=== PATIENT | male | born 1970 | race Caucasian/White ===

== ENCOUNTER 2022-05-23 19:21 | Observation (INO) | payer OTHER ==
--- OUTSIDE RECORDS SUMMARY | 2022-05-23 19:25 | XMS REPORT | Continuity of Care Document ---
:1970 Author Organization [facility] t Address [address] [place] [address] Care Team Providers Name Role Phone Pcp, Patient Does Not Have A Primary Care Physician [phone] L_Pena Attending Clinician Unavailable Asked, No Pcp Attending Clinician Unavailable Mony Kerr Attending Clinician [phone] TATUM Attending Clinician Unavailable Eloisa Mcnair Attending Clinician [phone] Nay Cornelius RN Attending Clinician Unavailable Only, Ang Db Test Attending Clinician Unavailable Diego Hua MD Attending Clinician DIEGO HUA Attending Clinician Unavailable Matthias Penn Attending Clinician L_Pena Admitting Clinician Unavailable WATERS_S Admitting Clinician Unavailable Payers Payer Name Policy Type Policy Number Effective Date Expiration Date S ourberkley [employer] - OPEN ACCESS [id number] - NATIONAL (POS) Problems Condition Condition Condition Status Onset Resolution Last Treating Co mments Source Name Details Category Date Date Treatment Clinician Date Skin Skin Problem Active 2021-06 [place] lesion Lesion 2-08 [facility]i 00:00: ty 00 [facility] Clin[facility] Essential Essential Problem Active Swe francis hypertensi Hypertensi 9-13 Co mmuni on on 00:00: ty 00 [facility]ospita l Clinics DX:[id number] DX:[id number] Diagnosis Active 2015-062016-05-12 Memoria D=CONCUSSI 9D=CONCUSS 07-12 19:03:00 l ON WITH ION WITH 00:00: Rashel LOSS OF LOSS OF 00 CONS CONS Active 05/12/2016 [facility] Allergies, Adverse Reactions, Alerts Allergy Allergy Status Severity Reaction(s) Onset Inactive Treating Comm ents Source Name Type Date Date Clinician Erythrom Allergy Active Moderate Vomiting Swe francis ycin to Communi Base substanc ty e Hospita l Clinics NO KNOWN Drug Active [facility] Social History Social Habit Start Date Stop Date Quantity Comments Source Exposure to Yes [facility] SARS-CoV-2 (event) [facility] Sex Assigned At [birth year] [facility] 00:00:00 00:00:00 Smoking Status Start Date Stop Date Source Current Every [facility] Tobacco smoking consumption [facility] unknown Medications Ordered Filled Start Stop Current Ordering Indication Dosage Frequency Signature Comments Components Source Medication Medication Date Date Medication? Clinician (SIG) Name Name clonidine clonidine 2021-06 No clonidine [place] HCl 0.1 mg HCl 0.1 mg 2-08 HCl 0.1 mg Communi tabletTake tabletTake 11:01: tabletTake ty 1 tablet by 1 tablet by 00 1 tablet Hospita oral route. oral route. by oral l route. Clinics clonidine clonidine 2021-06 No clonidine [place] HCl 0.1 mg HCl 0.1 mg 2-08 HCl 0.1 mg Communi tabletTake tabletTake 09:12: tabletTake ty 1 tablet by 1 tablet by 00 1 tablet Hospita oral route. oral route. by oral l route. Clinics clonidine clonidine 2020-06 No clonidine [place] HCl 0.1 mg HCl 0.1 mg 0-29 HCl 0.1 mg Communi tabletTake tabletTake 09:40: tabletTake ty 2 tablets 2 tablets 00 2 tablets Hospita by oral by oral by oral l route. route. route. Clinics metoprolol metoprolol No metoprolol [place] succinate succinate succinate Communi ER 50 mg ER 50 mg ER 50 mg ty tablet,exte tablet,exte tablet,ext Hospita nded nded ended l release 24 release 24 release 24 Clinics hr TAKE 1 hr TAKE 1 hr TAKE 1 TABLET BY TABLET BY TABLET BY MOUTH EVERY MOUTH EVERY MOUTH DAY DAY EVERY DAY Zyrtec 10 Zyrtec 10 No 1 Q1D Zyrtec 10 [place] mg tablet mg tablet mg tablet Communi Take 1 Take 1 Take 1 ty tablet tablet tablet Hospita every day every day every day l by oral by oral by oral Clinic s route. route. route. aspirin 81 aspirin 81 No 1 Q1D aspirin 81 [place] mg mg mg Communi tablet,ara tablet,ara tablet,del ty yed release yed release ayed H ospita Take 1 Take 1 release l tablet tablet Take 1 Clinics every day every day tablet by oral by oral every day route for route for by oral 90 days. 90 days. route for 90 days. atenolol 50 atenolol 50 No atenolol [place] mg-chlortha mg-chlortha 50 C ommuni lidone 25 lidone 25 mg-chlorth ty mg tablet mg tablet alidone 25 Hospita TAKE 1 TAKE 1 mg tablet l TABLET BY TABLET BY TAKE 1 Cli nics MOUTH EVERY MOUTH EVERY TABLET BY DAY DAY MOUTH EVERY DAY lisinopril lisinopril No lisinopril [place] 20 mg 20 mg 20 mg Communi tablet TAKE tablet TAKE tablet ty 1 TABLET BY 1 TABLET BY TAKE 1 Hospita MOUTH EVERY MOUTH EVERY TABLET BY l DAY DAY MOUTH Clinics EVERY DAY lisinopril lisinopril No 1 Q1D lisinopril [place] 40 mg 40 mg 40 mg Communi tablet Take tablet Take tablet ty 1 tablet 1 tablet Take 1 Hospi ta every day every day tablet l by oral by oral every day Clin ics route. route. by oral route. metoprolol metoprolol No metoprolol [place] succinate succinate succinate Communi ER 50 mg ER 50 mg ER 50 mg ty tablet,exte tablet,exte tablet,ext Hospita nded nded ended l release 24 release 24 release 24 Clinics hr TAKE 1 hr TAKE 1 hr TAKE 1 TABLET BY TABLET BY TABLET BY MOUTH EVERY MOUTH EVERY MOUTH DAY DAY EVERY DAY Zyrtec 10 Zyrtec 10 No 1 Q1D Zyrtec 10 [place] mg tablet mg tablet mg tablet Communi Take 1 Take 1 Take 1 ty tablet tablet tablet Hospita every day every day every day l by oral by oral by oral Clinic s route. route. route. aspirin 81 aspirin 81 No aspirin 81 [place] mg mg mg Communi tablet,ara tablet,ara tablet,del ty yed release yed release ayed H ospita TAKE 1 TAKE 1 release l TABLET BY TABLET BY TAKE 1 Cli nics MOUTH EVERY MOUTH EVERY TABLET BY DAY DAY MOUTH EVERY DAY atenolol 50 atenolol 50 No atenolol [place] mg-chlortha mg-chlortha 50 C ommuni lidone 25 lidone 25 mg-chlorth ty mg tablet mg tablet alidone 25 Hospita TAKE 1 TAKE 1 mg tablet l TABLET BY TABLET BY TAKE 1 Cli nics MOUTH EVERY MOUTH EVERY TABLET BY DAY DAY MOUTH EVERY DAY clonidine clonidine No 1 clonidine [place] HCl 0.1 mg HCl 0.1 mg HCl 0.1 mg Communi tablet Take tablet Take tablet ty 1 tablet by 1 tablet by Take 1 Hospita oral route. oral route. tablet by l oral Clinics route. lisinopril lisinopril No 1 Q1D lisinopril [place] 40 mg 40 mg 40 mg Communi tablet Take tablet Take tablet ty 1 tablet 1 tablet Take 1 Hospi ta every day every day tablet l by oral by oral every day Clin ics route. route. by oral route. metoprolol metoprolol No metoprolol [place] succinate succinate succinate Communi ER 50 mg ER 50 mg ER 50 mg ty tablet,exte tablet,exte tablet,ext Hospita nded nded ended l release 24 release 24 release 24 Clinics hr TAKE 1 hr TAKE 1 hr TAKE 1 TABLET BY TABLET BY TABLET BY MOUTH EVERY MOUTH EVERY MOUTH DAY DAY EVERY DAY Zyrtec 10 Zyrtec 10 No 1 Q1D Zyrtec 10 [place] mg tablet mg tablet mg tablet Communi Take 1 Take 1 Take 1 ty tablet tablet tablet Hospita every day every day every day l by oral by oral by oral Clinic s route. route. route. fenofibrate fenofibrate No 1 Q1D fenofibrat [place] 54 mg 54 mg e 54 mg Communi tablet Take tablet Take tablet ty 1 tablet 1 tablet Take 1 Hospi ta every day every day tablet l by oral by oral every day Clin ics route. route. by oral route. metoprolol metoprolol No 1 Q1D metoprolol [place] succinate succinate succinate Communi ER 50 mg ER 50 mg ER 50 mg ty tablet,exte tablet,exte tablet,ext Hospita nded nded ended l release 24 release 24 release 24 Clinics hr Take 1 hr Take 1 hr Take 1 tablet tablet tablet every day every day every day by oral by oral by oral route. route. route. atenolol 50 atenolol 50 No 1 Q1D atenolol [place] mg-chlortha mg-chlortha 50 C ommuni lidone 25 lidone 25 mg-chlorth ty mg tablet mg tablet alidone 25 Hospita Take 1 Take 1 mg tablet l tablet tablet Take 1 Clinics every day every day tablet by oral by oral every day route for route for by oral 90 days. 90 days. route for 90 days. clonidine clonidine No 2 clonidine [place] HCl 0.1 mg HCl 0.1 mg HCl 0.1 mg Communi tablet Take tablet Take tablet ty 2 tablets 2 tablets Take 2 Hos tyron by oral by oral tablets by l route. route. oral Clinics route. fenofibrate fenofibrate No fenofibrat [place] 54 mg 54 mg e 54 mg Communi tablet TAKE tablet TAKE tablet ty 1 TABLET BY 1 TABLET BY TAKE 1 Hospita MOUTH EVERY MOUTH EVERY TABLET BY l DAY DAY MOUTH Clinics EVERY DAY lisinopril lisinopril No 1 Q1D lisinopril [place] 10 mg 10 mg 10 mg Communi tablet Take tablet Take tablet ty 1 tablet 1 tablet Take 1 Hospi ta every day every day tablet l by oral by oral every day Clin ics route for route for by oral 90 days. 90 days. route for 90 days. metoprolol metoprolol No metoprolol [place] succinate succinate succinate Communi ER 50 mg ER 50 mg ER 50 mg ty tablet,exte tablet,exte tablet,ext Hospita nded nded ended l release 24 release 24 release 24 Clinics hr TAKE 1 hr TAKE 1 hr TAKE 1 TABLET BY TABLET BY TABLET BY MOUTH EVERY MOUTH EVERY MOUTH DAY DAY EVERY DAY aspirin 81 aspirin 81 No 1 Q1D aspirin 81 [place] mg mg mg Communi tablet,ara tablet,ara tablet,del ty yed release yed release ayed H ospita Take 1 Take 1 release l tablet tablet Take 1 Clinics every day every day tablet by oral by oral every day route for route for by oral 90 days. 90 days. route for 90 days. atenolol 50 atenolol 50 No atenolol [place] mg-chlortha mg-chlortha 50 C ommuni lidone 25 lidone 25 mg-chlorth ty mg tablet mg tablet alidone 25 Hospita TAKE 1 TAKE 1 mg tablet l TABLET BY TABLET BY TAKE 1 Cli nics MOUTH EVERY MOUTH EVERY TABLET BY DAY DAY MOUTH EVERY DAY cefdinir cefdinir No 1capsul Q12H cefdinir [place] 300 mg 300 mg e(s) 300 mg Communi capsule capsule capsule ty Take 1 Take 1 Take 1 Hospita capsule capsule capsule l every 12 every 12 every 12 Cli nics hours by hours by hours by oral route oral route oral route for 10 for 10 for 10 days. days. days. clonidine clonidine No 2 clonidine [place] HCl 0.1 mg HCl 0.1 mg HCl 0.1 mg Communi tablet Take tablet Take tablet ty 2 tablets 2 tablets Take 2 Hos tyron by oral by oral tablets by l route. route. oral Clinics route. fenofibrate fenofibrate No fenofibrat [place] 54 mg 54 mg e 54 mg Communi tablet TAKE tablet TAKE tablet ty 1 TABLET BY 1 TABLET BY TAKE 1 Hospita MOUTH EVERY MOUTH EVERY TABLET BY l DAY DAY MOUTH Clinics EVERY DAY lisinopril lisinopril No lisinopril [place] 10 mg 10 mg 10 mg Communi tablet TAKE tablet TAKE tablet ty 1 TABLET BY 1 TABLET BY TAKE 1 Hospita MOUTH EVERY MOUTH EVERY TABLET BY l DAY DAY MOUTH Clinics EVERY DAY lisinopril lisinopril No 1 Q1D lisinopril [place] 20 mg 20 mg 20 mg Communi tablet Take tablet Take tablet ty 1 tablet 1 tablet Take 1 Hospi ta every day every day tablet l by oral by oral every day Clin ics route for route for by oral 30 days. 30 days. route for 30 days. metoprolol metoprolol No metoprolol [place] succinate succinate succinate Communi ER 50 mg ER 50 mg ER 50 mg ty tablet,exte tablet,exte tablet,ext Hospita nded nded ended l release 24 release 24 release 24 Clinics hr TAKE 1 hr TAKE 1 hr TAKE 1 TABLET BY TABLET BY TABLET BY MOUTH EVERY MOUTH EVERY MOUTH DAY DAY EVERY DAY aspirin 81 aspirin 81 No 1 Q1D aspirin 81 [place] mg mg mg Communi tablet,ara tablet,aar tablet,del ty yed release yed release ayed H ospita Take 1 Take 1 release l tablet tablet Take 1 Clinics every day every day tablet by oral by oral every day route for route for by oral 90 days. 90 days. route for 90 days. atenolol 50 atenolol 50 No atenolol [place] mg-chlortha mg-chlortha 50 C ommun lidone 25 lidone 25 mg-chlorth ty mg tablet mg tablet alidone 25 Hospita TAKE 1 TAKE 1 mg tablet l TABLET BY TABLET BY TAKE 1 Cli nics MOUTH EVERY MOUTH EVERY TABLET BY DAY DAY MOUTH EVERY DAY lisinopril lisinopril No lisinopril [place] 20 mg 20 mg 20 mg Communi tablet TAKE tablet TAKE tablet ty 1 TABLET BY 1 TABLET BY TAKE 1 Hospita MOUTH EVERY MOUTH EVERY TABLET BY l DAY DAY MOUTH Clinics EVERY DAY lisinopril lisinopril No 1 Q1D lisinopril [place] 40 mg 40 mg 40 mg Communi tablet Take tablet Take tablet ty 1 tablet 1 tablet Take 1 Hospi ta every day every day tablet l by oral by oral every day Clin ics route. route. by oral route. Vital Signs Vital Name Observation Time Observation Value Comments Source BP Diastolic 2022-05-20 00:00:00 146 mm[Hg] [facility] s Height 2022-05-20 00:00:00 77 [in_i] [facility] s BMI (Body Mass 2022-05-20 00:00:00 34.5 kg/m2 [facility]) [facility] s BP Systolic 2022-05-20 00:00:00 210 mm[Hg] [facility] s Body Weight 2022-05-20 00:00:00 4649.6 [oz_av] [facility] s BP Diastolic 2022-02-23 00:00:00 112 mm[Hg] [facility] s Height 2022-02-23 00:00:00 77 [in_i] [facility] s BMI (Body Mass 2022-02-23 00:00:00 33.1 kg/m2 [facility]) [facility] s BP Systolic 2022-02-23 00:00:00 178 mm[Hg] [facility] s Body Weight 2022-02-23 00:00:00 4464 [oz_av] [facility] s BP Diastolic 2021-04-24 00:00:00 120 mm[Hg] [facility] s Height 2021-04-24 00:00:00 77 [in_i] [facility] s BMI (Body Mass 2021-04-24 00:00:00 35.2 kg/m2 [facility] s BP Systolic 2021-04-24 00:00:00 178 mm[Hg] [facility] s Body Weight 2021-04-24 00:00:00 4745.6 [oz_av] [facility] s BP Diastolic 2021-04-10 00:00:00 117 mm[Hg] [facility] s Height 2021-04-10 00:00:00 77 [in_i] [facility] s BMI (Body Mass 2021-04-10 00:00:00 36 kg/m2 [facility]) [facility] s BP Systolic 2021-04-10 00:00:00 176 mm[Hg] [facility] s Body Weight 2021-04-10 00:00:00 4864 [oz_av] [facility] s BP Diastolic 2021-02-05 00:00:00 124 mm[Hg] [facility] s Height 2021-02-05 00:00:00 77 [in_i] [facility] s BMI (Body Mass 2021-02-05 00:00:00 33.8 kg/m2 [facility]) Hospital Clinic s BP Systolic 2021-02-05 00:00:00 192 mm[Hg] [facility] s Body Weight 2021-02-05 00:00:00 4563.2 [oz_av] [facility] s Procedures Procedure Date / Time Performed Performing Clinician [facility] e Knee Counts Include 234 [facility] At [facility] Arthroscopy/surgery Hospital Cli nics Plan of Care Planned Activity Planned Date Details Comments Source Future Scheduled Test 2022-05-21 HEPATITIS B VACCINES [facility] 08:06:14 (1 of 3 - 3-dose series) [code = HEPATITIS B VACCINES (1 of 3 - 3-dose series)] Future Scheduled Test 2022-05-21 COVID-19 VACCINE [facility] 08:06:14 (#1) [code = COVID-19 VACCINE (#1)] Future Scheduled Test 2022-05-21 COLONOSCOPY Method [facility] 08:06:14 SCREENING [code = COLONOSCOPY SCREENING] Future Scheduled Test 2022-05-21 SHINGLES VACCINES (1 [facility] 08:06:14 of 2) [code = SHINGLES VACCINES (1 of 2)] Future Scheduled Test 2022-05-21 INFLUENZA VACCINE [facility] 08:06:14 [code = INFLUENZA VACCINE] Diagnostic Test 2022-05-20 CBC w/ auto diff [place] [facility] Pending 00:00:00 [code = CBC w/ auto Hospital Clinics diff] Diagnostic Test 2022-05-20 CMP, serum or plasma [facility] Pending 00:00:00 [code = CMP, serum Hospital Clinics or plasma] Diagnostic Test 2022-05-20 lipid panel, serum Counts Include 234 [facility] Pending 00:00:00 [code = lipid panel, [facility] serum] Diagnostic Test 2022-05-20 HbA1c (hemoglobin Counts Include 234 [facility] Pending 00:00:00 A1c), blood [code = [facility] HbA1c (hemoglobin A1c), blood] Diagnostic Test 2022-05-20 PSA, total, serum or [facility] Pending 00:00:00 plasma [code = PSA, [facility] total, serum or plasma] Diagnostic Test 2022-05-20 vitamin D, [place] Commu nit Pending 00:00:00 25-hydroxy, total, [facility] serum [code = vitamin D, 25-hydroxy, total, serum] Diagnostic Test 2022-05-20 TSH + free T4, serum [facility] Pending 00:00:00 [code = TSH + free Hospital Clinics T4, serum] Diagnostic Test 2022-05-20 noninvasive [place] [facility] n[facility] Pending 00:00:00 colorectal cancer [facility] linics DNA + occult blood screening, QL, stool [code = noninvasive colorectal cancer DNA + occult blood screening, QL, stool] Future Appointment 2022-05-28 Mony Kerr [address] [place] [address] 07:00:00 [facility], [address] , [place] [address] Instructions [facility] y Hospital Clinic s Encounters Start End Encounter Admission Attending Care Care Encounter Source Date/Time Date/Time Type Type Clinicians Facility Department ID 2022-05-21 2022-05-21 Outpatient L_Cirilo [facility] [id number] [place] 00:00:00 00:00:00 1209 [facility] i [facility] Clin[facility] 2022-05-20 2022-05-20 Outpatient L_Cirilo [facility] [id number] [place] 00:00:00 00:00:00 1208 Commun i ty Hospita l Clinics 2022-05-20 2022-05-20 Telephone Asked, No [id number] Methodi 00:00:00 00:00:[address] 3.430.2.7 Hospit a .[id number] l .8 2022-05-20 2022-05-20 [facility] [place] [id number] [place] 00:00:00 00:00:00 Nataliya Kerr APRN, MSN, [facility]: [address], CLIN[address], [place] [address] , Ph. 2022-02-23 2022-02-23 Outpatient L_Cirilo [facility] [id number] [place] 00:00:00 00:00:00 1207 Commun i ty Hospita l Clinics 2022-02-23 2022-02-23 Outpatient L_Cirilo [facility] [id number] [place] 00:00:00 00:00:00 0913 Commun i ty Hospita l Clinics 2022-02-23 2022-02-23 Outpatient CiriloZanea [facility] [id number] 00:00:00 00:00:00 [id number] 2022-02-23 2022-02-23 Outpatient Mony Kerr [facility] [id number] 00:00:00 00:00:00 [id number] 2022-02-23 2022-02-23 Mony [facility] [place] [facility] [place] [id number] [place] 00:00:00 00:00:00 Cirilo [facility] alecia IVEY, MSN, [facility] - ty [facility]: [address] [address] , Ph. 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 2021-03-14 2021-03-14 Outpatient WATERS_S [facility] [id number] [place] 07:22:00 07:22:00 1002 Commun i ty Hospita l Clinics 2021-02-16 2021-02-16 Telephone Adryan DOUGHERTY [id number] Univers 00:00:00 00:00:00 , Nay PARSONS [id number] ity of [facility] [id number] Irvin as [id number] [address] 2021-02-16 2021-02-16 Telephone Adryan DOUGHERTY [id number] Univers 00:00:00 00:00:00 , Nay PARSONS [id number] ity of [facility] [id number] Irvin as [id number] [address] 2021-02-15 2021-02-15 Laboratory Only, Ang Db Test [facility] 1.2.8 [id number] [id number] Univers 15:45:23 16:01:32 Only [facility] [id number] ity [facility] [id number] Irvin as Sami?Blea [id number] [address] Medical Office Building 2021-02-15 2021-02-15 Outpatient R [facility] [id number] Univers 15:25:00 15:25:00 DIEGO [facility] 2021-02-07 2021-02-07 Outpatient WATERS_S [facility] [id number] [place] 02:28:00 02:28:00 0828 Commun i ty Hospita l Clinics 2021-02-05 2021-02-05 Outpatient WATERS_S [facility] [id number] [place] 03:16:00 03:16:00 0826 Commun i ty Hospita l Clinics 2021-02-05 2021-02-05 [id number] 00:00:00 00:00:00 Eloisa [id number] 2021-02-05 2021-02-05 Eloisa [facility] [place] 00:00:00 00:00:00 Xu [facility] [employer] 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 2016-05-13 2016-05-13 Outpatient [facility] [id number] Memoria 00:56:00 05:59:00 r Rashel 00 l [facility] 2016-05-13 2016-05-13 Outpatient [place] [id number] [facility] 05:59:00 r Rashel l [facility] 2016-05-12 2016-05-12 Outpatient Matthias Penn [facility] [id number] 18:56:00 23:59:00 Andrey 00 Results This patient has no known results.
--- NOTE | 2022-05-23 20:56 | RAD REPORT ---
EXAM DESCRIPTION: CT - Head Brain Wo Cont - 05/23/2022 8:46 pm CLINICAL HISTORY: headache, elevated blood pressure COMPARISON: None TECHNIQUE: All CT scans are performed using dose optimization technique as appropriate and may inclu de automated exposure control or mA/KV adjustment according to patient size. FINDINGS: No intracranial hemorrhage, hydrocephalus or extra-axial fluid collection.No areas of brai n edema or evidence of midline shift. The paranasal sinuses and mastoids are clear. The calvarium is intact. IMPRESSION: No acute intracranial abnormality.
[2022-05-23] MEDS ORDERED: NITROGLYCERIN 0.4 MG/TAB SL ONE (21:05)
--- NOTE | 2022-05-23 21:33 | RAD REPORT ---
EXAM DESCRIPTION: RAD - Chest Single View - 05/23/2022 9:06 pm CLINICAL HISTORY: CHEST PAIN COMPARISON: None FINDINGS: Lines: None. Lungs: No evidence of edema or pneumonia. Pleural: No significant pleural effusions or pneumothorax. Cardiac: The heart size is within normal limits. Mediastinum: Within normal limits. Bones: No acute fractures. Other: None IMPRESSION: No acute cardiopulmonary disease.
[2022-05-23 21:45] LABS: Absolute Lymphocytes (CBC) 1.9 K/uL (0.7-4.9); Hematocrit 50.4 % (39.6-49.0); Lymphocytes % 31.8 % (15.3-44.8); MCV 87.2 fL (80-100); MPV 7.8 fL (7.6-11.3); RBC Red Blood Cell Count 5.79 M/uL (4.33-5.43)
[2022-05-23 21:46] LABS: Protime INR 0.92
[2022-05-23 21:57] LABS: Magnesium 2.1 mg/dL (1.6-2.4); Potassium 3.6 mmol/L (3.5-5.1); Troponin High Sensitivity 28.6 pg/mL (<58.9)
[2022-05-23] MEDS ORDERED: ASPIRIN 81 MG CHEWABLE TABLET ONE (23:07)
--- NOTE | 2022-05-23 23:09 | ER ---
Nurse's Notes [facility] Name: Manjinder Jernigan Jr Age: 52 yrs Sex: Male : 1970 Arrival Date: 05/23/2022 Time: 19:30 Bed 20 Private MD: Diagnosis: Chest pain, unspecified;Hypertensive heart disease without heart failure Presentation: 05/23 19:50 Chief complaint: Patient states: High blood pressure has been elevate despite taking kb3 his medications as prescribed. PCP increased lisinopril from 20mg to 40mg and added PRN clonidine if SBP> 180 on . BP has remained elevated throughout the weekend. Coronavirus screen: Vaccine status: Patient reports receiving the 2nd dose of the covid vaccine. Client denies travel out of the [place] in the last 14 days. Ebola Screen: Patient negative for fever greater than or equal to 101.5 degrees Fahrenheit, and additional compatible Ebola Virus Disease symptoms Patient denies exposure to infectious person. Patient denies travel to an Ebola-affected area in the 21 days before illness onset. No symptoms or risks identified at this time. Initial Sepsis Screen: Does the patient meet any 2 criteria? No. Patient's initial sepsis screen is negative. Does the patient have a suspected source of infection? No. Patient's initial sepsis screen is negative. Risk Assessment: Do you want to hurt yourself or someone else? Patient reports no desire to harm self or others. Onset of symptoms is unknown. 19:50 Method Of Arrival: Ambulatory kb3 19:50 Acuity: SARA 3 kb3 Triage Assessment: 19:54 General: Appears in no apparent distress. Behavior is calm, cooperative. Pain: Denies kb3 pain. Historical: - Allergies: 19:54 Erythromycin; kb3 - Home Meds: 19:54 aspirin 81 mg Oral chew 1 tab once daily [Active]; atenolol-chlorthalidone 50-25 mg kb3 oral tab 1 tab once daily [Active]; lisinopril 40 mg Oral tab 1 tab once daily [Active]; clonidine HCl 0.1 mg Oral Tb12 1 tab as needed [Active]; metoprolol tartrate 50 mg Oral tab 1 tab once daily [Active]; - PMHx: 19:54 Hypertensive disorder; kb3 - PSHx: 19:54 None; kb3 - Immunization history:: Adult Immunizations up to date, Client reports receiving the 2nd dose of the Covid vaccine, Last tetanus immunization: < 10 years ago. - Social history:: Smoking status: Patient reports the use of cigarette tobacco products, smokes one-half pack cigarettes per day. Screenin:15 [facility] ED Fall Risk Assessment (Adult) History of falling in the last 3 months, eh3 including since admission No falls in past 3 months (0 pts) Confusion or Disorientation No (0 pts) Intoxicated or Sedated No (0 pts) Impaired Gait No (0 pts) Mobility Assist Device Used No (0 pt) Altered Elimination No (0 pt) Score/Fall Risk Level 0 - 2 = Low Risk. Humpty Dumpty Scale Fall Assessment Tool (age< 18yrs) Age 13 years and above (1 pt) Gender Male (2 pts) Diagnosis Other diagnosis (1 pt) Cognitive Impairments Oriented to own ability (1 pt) Environmental Factors Patient placed in bed (2 pts) Response to Surgery/Sedation/Anesthesia More than 48 hours/None (1 pt) Medication Usage Other medications/ None (1 pt) Fall Risk Score/ Level Low Fall Risk: < 11 points Call lights \T\ moveable tables at bedside are N/A for Behavioral units or Behavioral Health Level of care. Abuse screen: Denies threats or abuse. Denies injuries from another. Nutritional screening: No deficits noted. Tuberculosis screening: No symptoms or risk factors identified. Fall Risk No fall in past 12 months (0 pts). No secondary diagnosis (0 pts). IV access (20 points). Ambulatory Aid- None/Bed Rest/Nurse Assist (0 pts). Gait- Normal/Bed Rest/Wheelchair (0 pts) Mental Status- Oriented to own ability (0 pts). Total Alejo Fall Scale indicates No Risk (0-24 pts). Assessment: 20:15 General: Appears in no apparent distress. uncomfortable, Behavior is calm, cooperative, eh3 appropriate for age. Pain: Complains of pain in chest Pain does not radiate. Neuro: Level of Consciousness is awake, alert, obeys commands, Oriented to person, place, time, situation. Cardiovascular: Capillary refill < 3 seconds Patient's skin is warm and dry. Respiratory: Airway is patent Respiratory effort is even, unlabored, Respiratory pattern is regular, symmetrical. GI: No signs and/or symptoms were reported involving the gastrointestinal system. Abdomen is round non-distended. : No signs and/or symptoms were reported regarding the genitourinary system. EENT: No signs and/or symptoms were reported regarding the EENT system. Derm: No signs and/or symptoms reported regarding the dermatologic system. Musculoskeletal: No signs and/or symptoms reported regarding the musculoskeletal system. Circulation, motion, and sensation intact. Range of motion: intact in all extremities. 21:15 Reassessment: Patient appears in no apparent distress at this time. Patient and/or eh3 family updated on plan of care and expected duration. Pain level reassessed. Patient is alert, oriented x 3, equal unlabored respirations, skin warm/dry/pink. 22:15 Reassessment: Patient appears in no apparent distress at this time. Patient and/or eh3 family updated on plan of care and expected duration. Pain level reassessed. Patient is alert, oriented x 3, equal unlabored respirations, skin warm/dry/pink. 23:15 Reassessment: Patient appears in no apparent distress at this time. Patient and/or eh3 family updated on plan of care and expected duration. Pain level reassessed. Patient is alert, oriented x 3, equal unlabored respirations, skin warm/dry/pink. 05/24 15:14 Reassessment: attempted to call report to second floor. nurse stated she will have to kc6 call me back because she was not aware that she is getting a new patient. Vital Signs: 05/23 19:50 BP 185 / 132; Pulse 68; Resp 20; Temp 98.8; Pulse Ox 100% ; Weight 131.54 kg; Height 6 kb3 ft. 5 in. (195.58 cm); Pain 0/10; 21:15 BP 154 / 103; Pulse 65; Resp 20; Pulse Ox 97% on R/A; eh3 22:15 BP 146 / 96; Pulse 65; Resp 18; Pulse Ox 94% on R/A; eh3 23:15 BP 146 / 99; Pulse 59; Resp 20; Pulse Ox 94% on R/A; eh3 19:50 Body Mass Index 34.39 (131.54 kg, 195.58 cm) kb3 ED Course: 19:30 Patient arrived in ED. bp1 19:32 Tino Hinson PA is PHCP. cp 19:32 González Nunn MD is Attending Physician. cp 19:53 Triage completed. kb3 19:54 Arm band placed on right wrist. kb3 20:15 Carly Hill, RN is Primary Nurse. eh3 20:15 Patient has correct armband on for positive identification. Bed in low position. Call eh3 light in reach. Side rails up X2. Adult w/ patient. Client placed on continuous cardiac and pulse oximetry monitoring. NIBP monitoring applied. Door closed. Noise minimized. Warm blanket given. 20:38 Jessenia Monroe, RN is Primary Nurse. hb 20:47 CT Head Brain wo Cont In Process Unspecified. EDMS 21:08 XRAY Chest (1 view) In Process Unspecified. EDMS 21:10 Inserted saline lock: 20 gauge in right antecubital area, using aseptic technique. eh3 Blood collected. 23:08 Kvng Baldwin MD is Hospitalizing Provider. cp 05/24 00:03 No provider procedures requiring assistance completed. Patient admitted, IV remains in eh3 place. Administered Medications: 05/23 21:05 Drug: Nitroglycerin 0.4 mg Route: Sublingual; eh3 21:31 Follow up: Response: Blood pressure is lowered eh3 22:40 Drug: Aspirin Chewable Tablet 324 mg Route: PO; eh3 23:00 Follow up: Response: No adverse reaction eh3 Medication: 05/24 00:03 VIS not applicable for this client. eh3 Outcome: 05/23 23:09 Decision to Hospitalize by Provider. cp 23:57 Admitted to ER Hold. Please see [facility] for further documentation. 05/24 00:03 Condition: stable eh3 15:49 Patient left the ED. kc6 Signatures: Dispatcher [employer] Eula Monroe RN Tino Stubbs PA PA cp Jessenia Monroe RN NO [facility] Carly Hill, NO SARABIA 3 Harriet Wharton RN RN kc6 Karen Rothman RN RN kb3 Corrections: (The following items were deleted from the chart) 05/23 23:55 21:01 Carly Hill RN is Primary Nurse. eh3 eh3
--- NOTE | 2022-05-23 23:09 | EDPHYS ---
Physician Documentation [facility] Name: Manjinder Jernigan Jr Age: 52 yrs Sex: Male : 1970 Arrival Date: 05/23/2022 Time: 19:30 Bed 20 Private MD: ED Physician González Nunn HPI: 05/23 20:30 This 52 yrs old Male presents to ER via Ambulatory with complaints of High Blood cp Pressure. 20:30 The patient has elevated blood pressure and discovered this at home, with a home device.cp 20:30 Onset: The symptoms/episode began/occurred last week. Associated signs and symptoms: cp Pertinent positives: chest pain, headache. 20:30 Patient reports elevated blood pressure since last week. Was seen by pcp who increased cp Lisinopril medication this past . Historical: - Allergies: 19:54 Erythromycin; kb3 - Home Meds: 19:54 aspirin 81 mg Oral chew 1 tab once daily [Active]; atenolol-chlorthalidone 50-25 mg kb3 oral tab 1 tab once daily [Active]; lisinopril 40 mg Oral tab 1 tab once daily [Active]; clonidine HCl 0.1 mg Oral Tb12 1 tab as needed [Active]; metoprolol tartrate 50 mg Oral tab 1 tab once daily [Active]; - PMHx: 19:54 Hypertensive disorder; kb3 - PSHx: 19:54 None; kb3 - Immunization history:: Adult Immunizations up to date, Client reports receiving the 2nd dose of the Covid vaccine, Last tetanus immunization: < 10 years ago. - Social history:: Smoking status: Patient reports the use of cigarette tobacco products, smokes one-half pack cigarettes per day. ROS: 20:35 Constitutional: Negative for body aches, chills, fever, poor PO intake. cp 20:35 Cardiovascular: Positive for chest pain, edema, Negative for palpitations. cp 20:35 Neuro: Positive for headache, Negative for altered mental status, dizziness, loss of consciousness, syncope, weakness. 20:35 Eyes: Negative for injury, pain, redness, and discharge. cp 20:35 ENT: Negative for drainage from ear(s), ear pain, sore throat, difficulty swallowing, difficulty handling secretions. 20:35 Respiratory: Negative for cough, shortness of breath, wheezing. 20:35 Abdomen/GI: Negative for abdominal pain, nausea, vomiting, and diarrhea. 20:35 All other systems are negative. cp Exam: 20:40 Constitutional: The patient appears in no acute distress, alert, awake, cp non-diaphoretic, non-toxic, well developed, well nourished. 20:40 Head/Face: Normocephalic, atraumatic. cp 20:40 Eyes: Periorbital structures: appear normal, Conjunctiva: normal, no exudate, no injection, Sclera: no appreciated abnormality, Lids and lashes: appear normal, bilaterally. 20:40 ENT: External ear(s): are unremarkable, Nose: is normal, Mouth: Lips: moist, Oral mucosa: moist, Posterior pharynx: Airway: no evidence of obstruction, patent. 20:40 Neck: ROM/movement: is normal, is supple, without pain, no range of motions limitations. 20:40 Chest/axilla: Inspection: normal. 20:40 Cardiovascular: Rate: normal, Rhythm: regular, Edema: ankle edema, that is very mild, JVD: is not appreciated. 20:40 Respiratory: the patient does not display signs of respiratory distress, Respirations: normal, no use of accessory muscles, no retractions, labored breathing, is not present, Breath sounds: are clear throughout, no decreased breath sounds, no stridor, no wheezing. 20:40 Abdomen/GI: Inspection: abdomen appears normal, Palpation: abdomen is soft and non-tender, in all quadrants. 20:40 Back: pain, that is mild. 20:40 Skin: no rash present. 20:40 Neuro: Orientation: to person, place \T\ time. Mentation: is normal, Cerebellar function: is grossly normal, Motor: moves all fours, strength is normal, Sensation: is normal. 21:17 ECG was reviewed by the Attending Physician. cp Vital Signs: 19:50 BP 185 / 132; Pulse 68; Resp 20; Temp 98.8; Pulse Ox 100% ; Weight 131.54 kg; Height 6 kb3 ft. 5 in. (195.58 cm); Pain 0/10; 21:15 BP 154 / 103; Pulse 65; Resp 20; Pulse Ox 97% on R/A; eh3 22:15 BP 146 / 96; Pulse 65; Resp 18; Pulse Ox 94% on R/A; eh3 23:15 BP 146 / 99; Pulse 59; Resp 20; Pulse Ox 94% on R/A; eh3 19:50 Body Mass Index 34.39 (131.54 kg, 195.58 cm) kb3 MDM: 20:04 Patient medically screened. cp 21:00 Differential diagnosis: hypertensive crisis, Malignant HTN, CVA, intracerebral cp hemorrhage, acute UT, angina. 22:15 Test interpretation: by ED physician or midlevel provider: ECG, plain radiologic cp studies. 22:15 Counseling: I had a detailed discussion with the patient and/or guardian regarding: the cp historical points, exam findings, and any diagnostic results supporting the discharge/admit diagnosis, lab results, radiology results. Response to treatment: the patient's symptoms have markedly improved after treatment. 22:20 Data reviewed: vital signs, nurses notes, lab test result(s), EKG, radiologic studies, cp CT scan, plain films. Physician consultation: Kvng Baldwin MD was contacted at 22:20, regarding admission, to the telemetry unit. patient's condition. 05/23 20:23 Order name: Basic Metabolic Panel 05/23 22:09 Interpretation: Normal except: BUN 25; GFR 76. 05/23 20:23 Order name: CBC with Diff; Complete Time: 22:09 05/23 22:09 Interpretation: Normal except: RBC 5.79; HCT 50.4; PLT 136. 05/23 20:23 Order name: Magnesium 05/23 20:23 Order name: NT PRO-BNP 05/23 20:23 Order name: PT-INR; Complete Time: 22:09 cp 05/23 20:23 Order name: Troponin HS 05/23 22:09 Interpretation: Troponin HS 28.6; Reviewed. 05/23 20:23 Order name: Urine Microscopic Only 05/23 20:23 Order name: UDS 05/23 23:16 Order name: Urine Dipstick-Ancillary EDDC 05/23 23:34 Order name: CKMB Creatine Kinase MB EDDC 05/23 23:34 Order name: CKMB Creatine Kinase MB EDDC 05/23 23:34 Order name: CKMB Creatine Kinase MB EDDC 05/23 23:34 Order name: Creatine Phosphokinase EDDC 05/23 20:23 Order name: XRAY Chest (1 view); Complete Time: 22:09 cp 05/23 20:23 Order name: CT Head Brain wo Cont; Complete Time: 22:09 cp 05/23 22:10 Interpretation: Report reviewed. 05/23 23:34 Order name: Creatine Phosphokinase [facility] 05/23 23:34 Order name: Creatine Phosphokinase [facility] 05/23 23:34 Order name: Lipid Profile [facility] 05/23 23:34 Order name: Lipid Profile [facility] 05/24 00:01 Order name: Creatine Phosphokinase [facility] 05/24 00:01 Order name: CKMB Creatine Kinase MB EDDC 05/24 08:09 Order name: SARS-COV-2 Antigen Rapid 05/24 08:50 Order name: Troponin High Sensitivity EDDC 05/24 08:58 Order name: Comprehensive Metabolic Panel EDDC 05/24 08:58 Order name: T4 Free EDDC 05/24 08:58 Order name: Magnesium EDDC 05/24 08:58 Order name: Thyroid Stimulating Hormone [facility] 05/24 10:29 Order name: SARS-COV-2 Antigen Rapid [facility] 05/23 20:23 Order name: EKG; Complete Time: 20:23 05/23 20:23 Order name: Cardiac monitoring; Complete Time: 21:22 05/23 20:23 Order name: EKG - Nurse/Tech; Complete Time: 21:16 05/23 20:23 Order name: IV Saline Lock; Complete Time: 21:22 05/23 20:23 Order name: Labs collected and sent; Complete Time: 21:22 05/23 20:23 Order name: O2 Per Protocol; Complete Time: 21:22 05/23 20:23 Order name: O2 Sat Monitoring; Complete Time: 21:22 05/23 20:23 Order name: Urine Dipstick-Ancillary (obtain specimen); Complete Time: 23:48 05/23 23:34 Order name: Heart Healthy EDDC EC:17 Rate is 73 beats/min. Rhythm is regular. CA interval is prolonged at 214 msec. QRS cp interval is prolonged at 122 msec. QT interval is normal. Interpreted by me. Reviewed by me. Administered Medications: 21:05 Drug: Nitroglycerin 0.4 mg Route: Sublingual; 3 21:31 Follow up: Response: Blood pressure is lowered 3 22:40 Drug: Aspirin Chewable Tablet 324 mg Route: PO; eh3 23:00 Follow up: Response: No adverse reaction eh3 Disposition: 05/24 22:31 Co-signature as Attending Physician, González Nunn MD. rn Disposition Summary: 05/23/22 23:09 Hospitalization Ordered Hospitalization Status: Observation cp Provider: Kvng Baldwin cp Condition: Stable cp Problem: new cp Symptoms: have improved cp Bed/Room Type: Standard cp Location: Telemetry/MedSurg (observation)(05/24/22 14:54) bd Room Assignment: 221(05/24/22 14:54) bd Diagnosis - Chest pain, unspecified cp - Hypertensive heart disease without heart failure cp Forms: - Medication Reconciliation Form cp - SBAR form cp Signatures: Dispatcher [employer] EDMS Ceci Brewster bd González Nunn MD MD rn Tino Hinson PA PA cp Joan Ventura RN RN Carly Hill RN RN 3 Karen Rothman RN RN kb3 Corrections: (The following items were deleted from the chart) 00:01 05/23 23:34 CKMB Creatine Kinase MB ordered. EDMS EDMS 05/24 00:01 12 23:34 Creatine Phosphokinase ordered. EDDC EDMS 05/24 00:02 05/23 23:09 Telemetry/MedSurg (observation) cp cg 05/24 00:02 12 23:09 cp cg 05/24 14:54 00:02 [facility] ER HOLD cg bd 14:54 00:02 ERHOLD- cg bd
[2022-05-23 23:14] LABS: Urine Blood Trace-intact (Negative); Urine Glucose Negative (Negative); Urine Protein 1+ (Negative); Urine pH 5.5 (5.0-7.0)
--- NOTE | 2022-05-23 23:23 | P.HP ---
Certification for Inpatient Patient admitted to: Observation With expected LOS: <2 Midnights Practitioner: I am a practitioner with admitting privileges, knowledge of patient current condition, hospital course, and medical plan of care. Services: Services provided to patient in accordance with Admission requirements found in Title 42 Section 412.3 of the Code of Federal Regulations Patient History Date of Service: 05/24/22 Reason for admission: Hypertensive urgency, chest discomfort. History of Present Illness: 52-year-old male patient with medical history significant for hypertension was evaluated in the emergency room for episode of elevated blood pressure. He reported recent change to his blood pressure medication with increase in lisinopril dose from 20 to 40 mg per primary care doctor however he continued to have elevated blood presure. he reported feeling discomfort with headache and dizziness. He reported chest discomfort and his systolic blood pressure over 200mmhg so he decided to come to the emergency room for evaluation. In the ED labs revealed abnormal vitals on arrival with systolic blood pressures of over 200 so he was given IV antihypertensive medication he was admitted for observation. At time of encounter he denies overt episode of chest pain but he felt some slight discomfort retrosternally. He denies fever, chills, rigor, nausea, vomiting, visual changes. Allergies erythromycin base Allergy (Verified 05/24/22 01:56) Hives/Rash Home Medications: Aspirin Chewable [Aspirin Chewable*] 81 mg PO DAILY 05/24/22 Atenolol/Chlorthalidone [Atenolol-Chlorthal 50-25 Tb] 1 each PO DAILY 05/24/22 Clonidine HCl [Clonidine HCl ER] 0.1 mg PO PRN PRN 05/24/22 Metoprolol Tartrate [Lopressor] 50 mg PO DAILY 05/24/22 lisinopriL [Lisinopril] 40 mg PO DAILY 05/24/22 - Past Medical/Surgical History Diabetic: No - Social History Smoking Status: Current every day smoker Alcohol use: No Review of Systems General: Unremarkable Eyes: Unremarkable ENT: Unremarkable Respiratory: Unremarkable Cardiovascular: Chest Pain Gastrointestinal: Unremarkable Genitourinary: Unremarkable Musculoskeletal: Unremarkable Integumentary: Unremarkable Neurological: Other (giddiness) Physical Examination - Physical Exam General: Alert, Oriented x3 HEENT: Atraumatic, Normocephalic Respiratory: Normal air movement Cardiovascular: Normal pulses, Regular rate/rhythm Gastrointestinal: Soft and benign Musculoskeletal: No swelling Neurological: Normal speech, Normal strength at 5/5 x4 extr - Studies Laboratory Data (last 24 hrs) 05/23/22 21:20: PT 10.1, INR 0.92 05/23/22 21:20: WBC 6.10, Hgb 17.2, Hct 50.4 H, Plt Count 136 L 05/23/22 21:20: Sodium 139, Potassium 3.6, BUN 25 H, Creatinine 1.14, Glucose 93, Magnesium 2.1 Assessment and Plan - Plan Hypertension: Poorly controlled. Antihypertensive medication to be continued as prescribed outpatient. Continue on as needed labetalol for blood pressure control for systolic BP above 170mmhg. Monitor on telemetry. Will obtain echocardiogram to assess for possible hypertensive heart disease. We will adjust BP meds to achieve BP goal of <130/80mmhg. Chest pain; Suspected due to ACS. Monitor on telemetry. We will obtain lipid panel. Will obtain echocardiogram to assess cardiac function. Prophylaxis: Lovenox for DVT prophylaxis CODE STATUS: Full code Disposition: we will work on blood pressure and control blood pressure. - Advance Directives Does patient have a Living Will: No Does patient have a Durable POA for Healthcare: No
[2022-05-23] MEDS ORDERED: ONDANSETRON 4 MG/2 ML VIAL IV PRN (23:24)
[2022-05-23] MEDS ORDERED: ACETAMINOPHEN 325 MG TABLET PO PRN (23:24)
[2022-05-23 23:25] LABS: Urine Mucus Slight /HPF (None Seen); Urine RBC <5 /HPF (None Seen)
[2022-05-23 23:30] LABS: Barbiturates NEGATIVE (NEGATIVE); Benzodiazepines NEGATIVE (NEGATIVE); Cocaine NEGATIVE (NEGATIVE); METHAMPHETAM NEGATIVE (NEGATIVE); Methadone NEGATIVE (NEGATIVE); Opiates NEGATIVE (NEGATIVE); Phencyclidine NEGATIVE (NEGATIVE); THC Cannibis NEGATIVE (NEGATIVE)
[2022-05-24 00:24] LABS: CKMB Creatine Kinase MB 1.6 ng/mL (1.0-3.6)
[2022-05-24 03:22] LABS: CKMB Creatine Kinase MB 1.1 ng/mL (1.0-3.6)
[2022-05-24] MEDS ORDERED: carvediloL 6.25 MG TAB ONE (04:41)
[2022-05-24] MEDS ORDERED: carvediloL 6.25 MG TAB PO SCH (06:00)
[2022-05-24] MEDS ORDERED: AMLODIPINE 5 MG TAB ONE (07:37)
[2022-05-24] MEDS ORDERED: ENOXAPARIN 40 MG/0.4 ML SQ ONE (07:37)
[2022-05-24] MEDS ORDERED: lisinopriL 20 MG TAB ONE (07:48)
[2022-05-24] MEDS: ENOXAPARIN 40 MG/0.4 ML SQ SCH (07:55)
[2022-05-24] MEDS: lisinopriL 20 MG TAB PO SCH (07:56)
[2022-05-24] MEDS: AMLODIPINE 5 MG TAB PO SCH (07:56)
[2022-05-24 08:58] LABS: Albumin 3.3 g/dL (3.4-5.0); Bilirubin Total 0.7 mg/dL (0.2-1.0); Magnesium 2.1 mg/dL (1.6-2.4); Potassium 3.6 mmol/L (3.5-5.1); Protein, Total 6.8 g/dL (6.4-8.2); Thyroid Stimulating Hormone 1.35 uIU/mL (0.358-3.740)
[2022-05-24 10:29] LABS: SARS-CoV-2 Antigen Rapid Res Negative (Negative)
[2022-05-24 14:45] LABS: CKMB Creatine Kinase MB 1.6 ng/mL (1.0-3.6)
--- NOTE | 2022-05-24 14:56 | EKG ---
Test Date: 2022-05-23 Test Time: 21:11:50 Egg Separator: RV MEASUREMENT RESULTS: Intervals: Rate: 67 WY: 208 QRSD: 136 QT: 432 QTc: 456 [place]: P: 68 W[place]: 208 QRS: -26 T: -13 INTERPRETIVE STATEMENTS: Normal sinus rhythm Left ventricular hypertrophy with QRS widening and repolarization abnormality Cannot rule out Septal infarct, age undetermined Abnormal ECG No previous ECG available for comparison Electronically Signed On 05-24-22 14:55:07 GENERAL FREIGHT AGENT by Donny Phillips
--- NOTE | 2022-05-24 14:56 | EKG ---
Test Date: 2022-05-23 Test Time: 21:12:26 Cash Room Clerk: RV MEASUREMENT RESULTS: Intervals: Rate: 73 ME: 214 QRSD: 122 QT: 448 QTc: 493 [place]: P: 69 ME: 214 QRS: -30 T: 18 INTERPRETIVE STATEMENTS: Sinus rhythm with 1st degree AV block Left axis deviation Left ventricular hypertrophy with QRS widening Cannot rule out Septal infarct, age undetermined Abnormal ECG Compared to ECG 05/23/2022 21:11:50 First degree AV block now present Left-axis deviation now present Early repolarization no longer present Myocardial infarct finding still present Electronically Signed On 05-24-22 14:55:04 ITINERANT TEACHER ASSISTANT by Donny Phillips
[2022-05-24] MEDS: CHLORTHALIDONE 25 MG TAB PO SCH (15:00)
[2022-05-24] MEDS: carvediloL 12.5 MG TAB PO SCH (16:35)
[2022-05-24] MEDS: LABETALOL 20 MG/4ML SYRINGE IV PRN ×2 (18:14→21:14)
--- NOTE | 2022-05-24 23:35 | P.PN ---
Date of Service: 05/24/22 Subjective: feels better, denies any further chest pain ROS: A complete review of systems was performed and is negative except as mentioned above Physical Exam: Gen: NAD, AOx3 HEENT: normal conjunctiva, sclera anicteric CV: regular rate & rhythm, no edema Pulm: non-labored respirations, clear bilaterally Abd: soft, non-tender, non-distended Skin: no rashes, no lesions Neuro: normal speech, normal affect, moves all extremities vitals reviewed Problem List HTN urgency Chest pain Nicotine dependence difficult to control BP, very resistant on multiple BP medications as outpatient, and still BP remains >180/100 at times continue amlodipine, carvedilol - started on admission (new) restarted home chlorthalidone pt reports nitro helped significantly in ED, discussed with Dr. Phillips, start imdur patient required IV anti-hypertensives, continue to monitor snores quite a bit, never had sleep study, although was recommended many years ago suspect EDILSON, could lead to resistant HTN check thyroid studies check renal artery doppler, r/o FRANCOIS Cardiology consulted Echo ordered VTE: lovenox Code: full Dispo: home, ~24-48hrs Time Spent Managing Pts Care (In Minutes): 35
[2022-05-24] MEDS: ISOSORBIDE MONO SR 60 MG TAB PO SCH (23:45)
[2022-05-25 04:46] LABS: Potassium 3.5 mmol/L (3.5-5.1)
[2022-05-25 05:51] VITALS: BMI 34.0
[2022-05-25] MEDS: carvediloL 12.5 MG TAB PO SCH (05:51)
--- NOTE | 2022-05-25 06:38 | ECHO ---
HEIGHT: 6 ft 5 in WEIGHT: 287 lb 0 oz DATE OF STUDY: 05/24/[address]: Vincent Nunn MD 2-DIMENSIONAL: YES M.MODE: YES DOPPLER: YES COLOR FLOW: YES TDS: PORTABLE: YES DEFINITY: BUBBLE STUDY: DIAGNOSIS: HYPERTENSION URGENCY CARDIAC HISTORY: CATHERIZATION: SURGERY: PROSTHETIC VALVE: PACEMAKER: MEASUREMENTS (cm) DIASTOLIC (NORMALS) SYSTOLIC (NORMALS) IVSd 1.4 (0.6-1.2) LA Diam 3.4 (1.9-4.0) LVEF 55-60% LVIDd 4.4 (3.5-5.7) LVIDs 3.2 (2.0-3.5) %FS 27% LVPWd 1.8 (0.6-1.2) Ao Diam 3.4 (2.0-3.7) 2 DIMENSIONAL ASSESSMENT: RIGHT ATRIUM: NORMAL LEFT ATRIUM: NORMAL RIGHT VENTRICLE: NORMAL LEFT VENTRICLE: MODERATE LEFT VENTRICULAR HYPERTROPHY TRICUSPID VALVE: NORMAL MITRAL VALVE: MILD MITRAL REGURGITATION PULMONIC VALVE: NORMAL AORTIC VALVE: NORMAL PERICARDIAL EFFUSION: TRACE AORTIC ROOT: NORMAL LEFT VENTRICULAR WALL MOTION: NORMAL DOPPLER/COLOR FLOW: SEE BELOW COMMENTS: 1. NORMAL LEFT VENTRICULAR EJECTION FRACTION 55-60% 2. NORMAL WALL MOTION 3. MODERATE CONCENTRIC LEFT VENTRICULAR HYPERTROPHY 4. MILD MITRAL REGURGITATION TECHNOLOGIST: SRI MEZA
--- NOTE | 2022-05-25 07:38 | RAD REPORT ---
EXAM DESCRIPTION: US - Abdomen Pelvis Scan US - 05/25/2022 5:35 am CLINICAL HISTORY: renal artery doppler, eval renal artery stenosis COMPARISON: No comparisons TECHNIQUE: Sonographic evaluation of the kidneys was performed with measurements obtained and gross anatomic assessment performed.Doppler evaluation of the renal arteries, interlobar arteries and aorta performed. Waveforms and velocities were recorded. The renal artery ratios and resistive index fidelia ues were calculated. FINDINGS: Right kidney is grossly 11 point 6 x 6.0 cm. Left kidney is grossly 12.6 x 5.4 cm. Both ki dneys show normal cortical thickness and echogenicity. No hydronephrosis or solid mass lesion. The 2 centimeter simple cyst is present central right kidney with a 1.3 cm simple cyst upper pole left kidn ey. Renal Doppler assessment shows no suspicious velocity value or suspicious waveform. Right-side resist sabiha index values of the renal artery range from 0.60-0.72 in value. Left renal artery resistive index value range form 0.62-0.66 in value. Proximal renal artery resistive index of 1.33 is believed to be an error. Arcuate artery resistive index values are 0.59 on the right and 0.58 on the left. Renal artery ratios are 0.67 on the right and 0.68 on the left. IMPRESSION: Normal renal artery ratios. No suspicion for renal artery stenosis. No hydronephrosis, mass or other renal anatomic significant finding.
[2022-05-25] MEDS: ISOSORBIDE MONO SR 60 MG TAB PO SCH (10:18)
[2022-05-25] MEDS: lisinopriL 20 MG TAB PO SCH (10:18)
[2022-05-25] MEDS: ENOXAPARIN 40 MG/0.4 ML SQ SCH (10:19)
[2022-05-25] MEDS: CHLORTHALIDONE 25 MG TAB PO SCH (10:19)
[2022-05-25] MEDS: AMLODIPINE 5 MG TAB PO SCH (10:19)
--- NOTE | 2022-05-25 11:01 | P.DS ---
Admission Date: 05/24/22 Discharge Date: 05/25/22 Disposition: ROUTINE DISCHARGE Discharge Condition: FAIR Reason for Admission: Hypertensive urgency, chest discomfort. - Problems (1) Accelerated hypertension Current Visit: Yes Status: Acute (2) Secondary polycythemia Current Visit: Yes Status: Acute Brief History of Present Illness: 52-year-old male patient with medical history significant for hypertension was evaluated in the emergency room for episode of elevated blood pressure. He reported recent change to his blood pressure medication with increase in lisinopril dose from 20 to 40 mg per primary care doctor however he continued to have elevated blood presure. he reported feeling discomfort with headache and dizziness. He reported chest discomfort and his systolic blood pressure over 200mmhg so he decided to come to the emergency room for evaluation. In the ED patient's systolic blood pressures was over 200 so he was given IV antihypertensive medication and he was admitted for observation. Hospital Course: Patient placed on observation on the medical floor, troponin trended negative. Seen by cardiology, he was started on amlodipine, Coreg and Imdur per cardiology recommendation, continued lisinopril and chlorthalidone. Atenolol was replaced with Coreg. Patient was asymptomatic during the hospital stay. Blood pressure improved with these measures. Echocardiogram showed moderate LV hypertrophy, no wall motion abnormalities seen. Noted patient has some degree of polycythemia. Given his refractory hypertension, I suspect he has sleep apnea and recommended follow-up with pulmonary for sleep study. Patient deemed stable for discharge. He will follow with cardiology-Dr. Phillips within 1 month. Vital Signs/Physical Exam: Temp Pulse Resp BP Pulse Ox 97.7 F 71 18 147/80 H 96 05/25/22 08:00 05/25/22 10:19 05/25/22 08:00 05/25/22 10:19 05/25/22 08:00 General: Alert, In no apparent distress, Oriented x3 HEENT: Mucous membr. moist/pink Neck: Supple, JVD not distended Respiratory: Clear to auscultation bilaterally, Normal air movement Cardiovascular: No edema, Regular rate/rhythm, Normal S1 S2, No murmurs Gastrointestinal: Soft and benign, Non-distended Musculoskeletal: No swelling Neurological: Normal speech Laboratory Data at Discharge: WBC 6.10 K/uL (4.3-10.9) 05/23/22 21:20 Hgb 17.2 g/dL (13.6-17.9) 05/23/22 21:20 Hct 50.4 % (39.6-49.0) H 05/23/22 21:20 Plt Count 136 K/uL (152-406) L 05/23/22 21:20 PT 10.1 SECONDS (9.5-12.5) 05/23/22 21:20 INR 0.92 05/23/22 21:20 Sodium 138 mmol/L (136-145) 05/25/22 03:38 Potassium 3.5 mmol/L (3.5-5.1) 05/25/22 03:38 BUN 25 mg/dL (7-18) H 05/25/22 03:38 Creatinine 1.21 mg/dL (0.70-1.30) 05/25/22 03:38 Glucose 107 mg/dL (74-106) H 05/25/22 03:38 Magnesium 2.1 mg/dL (1.6-2.4) 05/24/22 08:18 Total Bilirubin 0.7 mg/dL (0.2-1.0) 05/24/22 08:18 AST 15 U/L (15-37) 05/24/22 08:18 ALT 23 U/L (16-61) 05/24/22 08:18 Alkaline Phosphatase 78 U/L (45-117) 05/24/22 08:18 Triglycerides 150 mg/dL (<150) 05/24/22 02:29 Cholesterol 179 mg/dL (<200) 05/24/22 02:29 HDL Cholesterol 34 mg/dL (40-60) L 05/24/22 02:29 Cholesterol/HDL Ratio 5.26 05/24/22 02:29 Home Medications: Aspirin Chewable [Aspirin Chewable*] 81 mg PO DAILY 05/24/22 lisinopriL [Lisinopril] 40 mg PO DAILY 05/24/22 Amlodipine [Norvasc*] 5 mg PO DAILY #30 tab 05/25/22 Chlorthalidone [Hygroton 25mg Tab*] 25 mg PO DAILY #30 tab 05/25/22 Isosorbide Mononitrate [Isosorbide Mononitrate ER] 60 mg PO DAILY #30 tab 05/25/22 carvediloL [Coreg*] 12.5 mg PO BID 6AM 6PM #60 tab 05/25/22 lisinopriL [Prinivil*] 40 mg PO DAILY #30 tab 05/25/22 New Medications: carvediloL [Coreg*] 12.5 mg PO BID 6AM 6PM #60 tab Chlorthalidone [Hygroton 25mg Tab*] 25 mg PO DAILY #30 tab Isosorbide Mononitrate [Isosorbide Mononitrate ER] 60 mg PO DAILY #30 tab Amlodipine [Norvasc*] 5 mg PO DAILY #30 tab lisinopriL [Prinivil*] 40 mg PO DAILY #30 tab Physician Discharge Instructions: PROBLEM: Hypertensive Urgency GOAL: Clear understanding of disease process INSTRUCTIONS: Follow up with your Primary care provider in 1-2 weeks. Call to make an appointment. Follow up with Doctor Cole in 1-2 weeks. Return to Emergency room if symptoms worsen. Diet: AHA Activity: Ad hodan IMMUNIZATION Influenza Vaccine Indicated: No Influenza Vaccine Given: Date Given: Pneumonia Vaccine Indicated: No Pneumonia Vaccine Given: Date Given: Diet: AHA Activity: Ad hodan Followup: NONE,NONE [Primary Care Provider] - Rory Cole MD [ACTIVE - CAN ADMIT] - 1-2 Weeks (Please evaluate for Sleep apnea.)
[2022-05-25 11:50] VITALS: O2SAT 96
[2022-05-25 12:39] VITALS: BP 140/90; TEMP 97.1
[2022-05-25] MEDS ORDERED: ISOSORBIDE MONO SR 60 MG TAB PO SCH (18:00)
--- NOTE | 2022-05-25 21:13 | CON ---
Date of Consultation: 05/24/2022 Reason For Consultation: Hypertensive urgency. History Of Present Illness: This is a 52-year-old male who has significant hypertension, presented t o the emergency room with blood pressure above 200 and above 130 diastolic. The patient has been abraham ing multiple medications. He denies having any shortness of breath or any chest pain. No nausea, vo miting, diarrhea. No other complaints. Past Medical History: Hypertension. Medications: Refer reconciliation sheet for list. Allergies: ERYTHROMYCIN. Family History: No premature coronary artery disease. Social History: Does not smoke, but he drinks on a regular basis. Wine every day. Does not use any drugs. Review of Systems: All systems reviewed are negative except mentioned in HPI. Physical Examination: Vital Signs: Reviewed. Head and Neck: Pupils are equal, reactive to light. Intact eye movements. No JVD. No cervical lym phadenopathy. Neck: Supple. Thyroid is not enlarged. Lungs: Clear to auscultation bilaterally. No rhonchi, wheezes, crackles. No accessory muscle use. Heart: Regular rate and rhythm. No extra sounds. Abdomen: Soft, nontender. Bowel sounds positive. No organomegaly. No masses or hernia. No rigidi ty or rebound. Extremities: No edema, clubbing or cyanosis. Intact pulses. Skin: No rashes. Neuro: Alert, awake, oriented x3. No acute focal deficits appreciated. Investigations: Troponins are negative and BUN is 22, creatinine 1.08. Assessment And Recommendations: 1.Hypertensive urgency. Resume home medications. He is maxed on multiple antihypertensive agents. Recommend to obtain renal artery ultrasound and outpatient sleep study and add Imdur 30 mg daily. 2.Chest pain. Troponins are negative. Plan for outpatient stress test and echocardiogram. Thank you for the consult. /[email or web address] Voice ID: [id number] Report ID: [id number]
== END 2022-05-25 13:25 | disposition home or self-care (01) ==
LOC: ER 19:21 → ERHOLD 05-24 00:25 → 2ND 05-24 15:34
PROVIDERS: ADMIT Internal Medicine Nephrology; ATTEND Internal Medicine
DX: I16.0 Hypertensive urgency (principal); R07.9 Chest pain, unspecified; D45 Polycythemia vera; F17.210 Nicotine dependence, cigarettes, uncomplicated; Z20.822 Contact with and (suspected) exposure to COVID-19; Z88.3 Allergy status to other anti-infective agents
CPT/HCPCS: 93005 ×2; 93306; 85025; 80048 ×2; 36415 ×2; 83735 ×2; 82550 ×3; 85610; 80061; 84443; 84484 ×2; 82553 ×3; 84439; 80053; 83880; 80307; 70450; 71045; 93975; 87811; J1650 ×2; 81003; 81015; 99285; G0378